=== PATIENT | male | born 1985 | race Caucasian/White ===

== ENCOUNTER 2020-11-18 11:40 | Day surgery (SDC) | payer OTHER, SELFPAY ==
[2020-11-13 10:45] VITALS: BMI 26.4
--- NOTE | 2020-11-17 09:50 | P.CONAN_ITS ---
Documented by User: Edilma Mercado NP 11/17/20 09:50 HPI - Anesthesia Eval Consult details Narrative: 34yo M for Colonoscopy [facility] Past Medical History Medical History Allergic eosinophilic esophagitis History of dysphagia Surgical History Surgical History History of esophagogastroduodenoscopy (EGD) History of tonsillectomy and adenoidectomy Hx of colonoscopy Social History Social History Patient Tobacco Use Status: Never used Tobacco Use of substances other than those prescribed or required for medical reasons: No Are you DNR?: No Advance Directives: No Advance Directives Information Provided: Yes Recently lost weight without trying: No Nutrition Risks: No Nutritional Risk Meds Allergies Allergy/AdvReac Type Severity Reaction Status Date / Time cefaclor Allergy Rash Verified 11/18/20 12:42 Home Medications Medication Instructions Recorded Confirmed Last Taken Type infliximab 100 mg intravenous mg IV 11/18/20 11/18/20 Unknown History solution (Remicade) Exam Exam Date and Time: November 17, 2020 0950 Height,Weight and Vital Signs: Height 5 ft 6 in Weight 74.389 kg Assessment and Plan Assessment Anesthesia Assessment: Chart Reviewed Documented by User: Liala Abel MD 11/18/20 13:00 [facility] Past Medical History Medical History Allergic eosinophilic esophagitis History of dysphagia Family History Family history of problems with anesthesia: No Surgical History Surgical History History of esophagogastroduodenoscopy (EGD) History of tonsillectomy and adenoidectomy Hx of colonoscopy History of Problems with Anesthesia: No Social History Social History Patient Tobacco Use Status: Never used Tobacco Use of substances other than those prescribed or required for medical reasons: No Are you DNR?: No Advance Directives: No Advance Directives Information Provided: Yes Recently lost weight without trying: No Nutrition Risks: No Nutritional Risk Meds Allergies Allergy/AdvReac Type Severity Reaction Status Date / Time cefaclor Allergy Rash Verified 11/18/20 12:42 Home Medications Medication Instructions Recorded Confirmed Last Taken Type infliximab 100 mg intravenous mg IV 11/18/20 11/18/20 Unknown History solution (Remicade) Exam Airway Mallampati Class: II TM Dist: >3cm Neck ROM: Full Assessment and Plan Assessment Anesthesia Assessment: Anesthesia Plan Discussed Final Anesthetic Review Family History of Problems with Anesthesia: No History of Problems with Anesthesia: No NPO: Yes ASA Class: II Final Preanesthetic Review: No Changes in Pt Med Stat, Meds/Allgs Chart Reviewed, Consent Obtained/Reviewed and Anes Risks/Benef Reviewed Patient Risk: Low Procedure Risk: Low Assessment/Block/Sedation in SS: Assess/Block/Sedation-SS Anesthetic Plan Anesthetic Plan: MAC: Disposition: Standard PACU
[2020-11-18 12:39] VITALS: BMI 25.8
[2020-11-18 12:46] VITALS: BP 115/71; PULSE 64; RESP 16; TEMP 37.1; O2SAT 96
[2020-11-18] MEDS: Lactated Ringers 1,000 ML 100 ML IVCONT (12:58)
--- NOTE | 2020-11-18 13:47 | MHC.SHP ---
Pre-Procedural Eval Section A Date of Service: 11/18/20 Section B Chief Complaint: crohn's disease Details of Present Illness: See H&P colonoscopy scheduled due due persistent symptoms requiring prednisone tapers despite Remicade rx. Remicade interval changed to q6 weeks from q8 at last infusion. Relevant Family History (Specify if Yes): No Relevant Social History: None Present Medications: see Short Stay Collaborative assessment Medical History: No relevant PMH History of Previous Operations: No relevant previous surgery Allergies: Allergies Allergy/AdvReac Type Severity Reaction Status Date / Time cefaclor Allergy Rash Verified 11/18/20 12:42 Plan I have reviewed the history and physical and performed a pertinent physical examination on my patient. No changes have occurred unless specified.
[2020-11-18 14:20] VITALS: BP 99/60; PULSE 76; RESP 16; TEMP 36.1; O2SAT 98
--- NOTE | 2020-11-18 14:29 | PM.OP ---
Brief Operative Note Date of Service: 11/18/20 Pre-op diagnosis: crohns colitis Post-op diagnosis: same (colon polyp) Procedure: colonoscopy Surgeon: Julio Cesar Bruno Anesthesia: MAC Was an Associate Professor Of Philosophy used for this Procedure?: No Estimated blood loss (mL): 5 Pathology: other (colon polyp, colon biopsies) Condition: stable Disposition: PACU
[2020-11-18 14:35] VITALS: BP 108/69; PULSE 69; RESP 16; TEMP 36.1; O2SAT 98
--- NOTE | 2020-11-18 18:30 | OP_ITS ---
SURGEON: Julio Cesar Bruno MD INDICATIONS: Crohn disease involving the colon. PREOPERATIVE DIAGNOSIS: POSTOPERATIVE DIAGNOSIS: PROCEDURE PERFORMED: Colonoscopy to the terminal ileum with biopsy. ESTIMATED BLOOD LOSS: COMPLICATIONS: ANESTHESIA: ASSISTANTS: SPECIMENS: MEDICATIONS: Monitored anesthesia care. DESCRIPTION OF PROCEDURE: History and physical performed. The risks and benefits of the procedure were explained to the patient. Informed consent was obtained. The patient was placed in the left lateral decubitus position. A digital rectal exam was performed and was found to be normal. The Olympus pediatric video colonoscope was introduced into the rectum and advanced to the cecum without difficulty. The cecum was identified by transillumination, palpation, and identification of ileocecal valve. Examination was performed and the scope was removed. He tolerated the procedure well and was taken to recovery area in stable condition. FINDINGS: The terminal ileum was normal. This was biopsied. The visualized colonic mucosa showed patchy areas of inflammatory changes, mainly limited to the distal right colon and proximal transverse colon. The remainder of the colonic mucosa appeared fairly normal with some mild proctitis involving the rectum. Biopsies were obtained from the terminal ileum and throughout the colon. There was a small rectal polyp measuring less than 5 mm, which was removed with biopsy forceps. Retroflexed examination was normal. IMPRESSION: 1. Crohn disease of the colon. 2. Colon polyp. RECOMMENDATION: Follow up the biopsy results. MD EDIS Glass/CAROLA / [id number]
== END 2020-11-18 16:49 | disposition home or self-care (01) ==
PROVIDERS: PCP Family Medicine; Visit Provider Internal Medicine Gastroenterology
PROC: 0DJD8ZZ Inspection of Lower Intestinal Tract, Via Natural or Artificial Opening Endoscopic (ICD-10-PCS; CPT 45378; principal; 2020-11-18 13:50)
DX: K50.10 Crohn's disease of large intestine without complications (principal); D12.8 Benign neoplasm of rectum; K62.89 Other specified diseases of anus and rectum
CPT/HCPCS: 45380; 88305